=== PATIENT | female | born 1960 | race Caucasian/White ===

== ENCOUNTER → 2019-05-19 | Outpatient (CLI) | payer OTHER ==
[2019-05-19 11:59] LABS: ALBUMIN 4.5 g/dL (3.5-5.0); ALKALINE PHOSPHATASE 87 U/L (38-126); ANION GAP 12 (5-19); ASPARTATE AMINO TRANSFERASE 18 U/L (14-36); BILIRUBIN,DIRECT 0.2 mg/dL (0.0-0.4); BILIRUBIN,TOTAL 1.5 mg/dL (0.2-1.3); BLOOD UREA NITROGEN 11 mg/dL (7-20); CALCIUM 9.4 mg/dL (8.4-10.2); CARBON DIOXIDE 25 mmol/L (22-30); CHLORIDE 102 mmol/L (98-107); CHOLESTEROL 180.28 mg/dL (0-200); GLUCOSE 168 mg/dL (75-110); TOTAL PROTEIN 7.6 g/dL (6.3-8.2); TRIGLYCERIDES 124 mg/dL (<150)
[2019-05-19 12:10] LABS: DIRECT LDL 121 mg/dL (<100)
[2019-05-20 12:36] LABS: CREATININE URINE 87.3 mg/dL (Not Estab.); MICROALBUMIN URINE 6.1 ug/mL (Not Estab.)
== END ==
LOC: OD 10:28
PROVIDERS: ATTEND Family Medicine
DX: E11.9 Type 2 diabetes mellitus without complications (principal)
CPT/HCPCS: 36415; 80053; 80061; 82043; 82570; 83036